=== PATIENT | male | born 1975 | race Caucasian/White ===

== ENCOUNTER → 2020-05-26 | Outpatient (CLI) | payer BC ==
--- NOTE | 2020-05-26 21:01 | CONS ---
CONSULTATION REASON FOR CONSULTATION: Sleep apnea. This is a 45-year-old male patient with classical manifestations of sleep apnea, including loud snoring, witnessed apneas and excessive hypersomnia and sleepiness. The patient goes to bed at 11:00, wakes up at 6:00 in the morning. On weekends he goes to bed at 11 p.m. and wakes up at 8 a.m. in the morning. There was concern for sleep apnea. The patient was referred for a home sleep study by his primary care physician. This was done through an outside system. I was able to obtain a copy of this type 3 home sleep study and this was done through [employer]. The patient was found to have a total of 192 obstructive hypopneas and 56 obstructive apneas, and the resulting apnea- hypopnea index was 35.4, consistent with severe disease. The patient's lowest pulse ox was 78%. The patient was sent over to me for further advice. He is a mouth-breather. His current [place] score is 4. No history of any motor vehicle accidents because of feeling drowsy or sleepy. His weight is up by around 15 pounds over the past 5 years. He does not take any naps during the day. PAST MEDICAL HISTORY: Sleep apnea and hypertension. SURGICAL HISTORY: Pilonidal cyst removal and rhinoplasty. DRUG ALLERGIES: NOT KNOWN. OUTPATIENT MEDICATION: Outpatient medication includes hydrochlorothiazide. SOCIAL HISTORY: Nonsmoker. No use of alcoholism. No history of IV drugs. FAMILY HISTORY: Brother has obstructive sleep apnea. REVIEW OF SYSTEMS: Twelve-point review of systems was done. Positive findings are mentioned above in the history of present illness. PHYSICAL EXAMINATION: BP is 144/84, pulse is 62, respirations 16, temperature 98.1, saturation 98% on room air. Height is 6 feet 0 inches, weight 290, BMI 37.8. Neck size is 20 inches. GENERAL APPEARANCE: Calm, comfortable. HEAD: Atraumatic, normocephalic. NECK: Supple. No JVD. No goiter or neck masses. Mallampati class IV. LUNGS: Clear to auscultation. HEART: Heart sounds are regular rate and rhythm. Normal S1, S2. No S3, S4. No murmurs. ABDOMEN: Soft, nontender. No organomegaly. EXTREMITIES: No edema. No cyanosis or clubbing. IMPRESSION: 1. Severe obstructive sleep apnea with an apnea/hypopnea index of 34. 2. Chronic hypersomnia. 3. Hypertension. PLAN: 1. Proceed with APAP treatment, minimum pressure of 5, maximum pressure of 15. 2. Provide the patient an AirFit F20 full-face mask, medium size. 3. Encourage weight loss. 4. Implement good sleep hygiene measures. 5. See me back in 30 to 90 days here in the sleep center for a compliancy check. MMODL / IJN: [id number] /
== END | disposition home or self-care (01) ==
LOC: SLEEP 15:51
PROVIDERS: ATTEND Internal Medicine Critical Care Medicine
DX: G47.33 Obstructive sleep apnea (adult) (pediatric) (principal); G47.10 Hypersomnia, unspecified; I10 Essential (primary) hypertension
CPT/HCPCS: 99201

== ENCOUNTER → 2020-08-11 | Outpatient (CLI) | payer BC ==
--- NOTE | 2020-08-11 16:54 | SLS ---
SLEEP STUDY Krzysztof is a 45-year-old male patient who has been diagnosed having severe obstructive sleep apnea with an AHI of 35.4. His diagnosis was confirmed by a home sleep study. Based on the symptomatic nature of his sleep apnea, I offered this patient an APAP unit and the patient today is coming in for a compliancy check. Unfortunately, the patient has done poorly. He has failed CPAP treatment. He is unable to maintain CPAP therapy for more than few hours. In fact, he told me that he was unable to generate any form of sleep while on the CPAP. He does have chronic arthritis of his hip, which makes him quite uncomfortable and the patient has some different body positions and he prefers to sleep on his stomach. As such, the CPAP treatment has become a major issue, which prevented him in initiating and maintaining sleep. For that reason, the patient ended up quitting the treatment. Based on the compliance data, the patient had the machine for a total of 68 days and used the machine only for 6 days. He was unable to achieve more than 4 hours of CPAP use per night. He continues to be symptomatic, somnolent and sleepy and he is coming in today for further advice. He is coming in for further advice. He is morbidly obese. He continues to gain weight. Currently his weight is up to 303 pounds which is at least 13 pounds higher compared to his last evaluation back in May. PERTINENT PHYSICAL FINDINGS: BP is 134/85, pulse 66, respirations 16, temperature 98.1, weight is 303, and saturation is 97% on room air. [place] score is at 3. GENERAL APPEARANCE: He is calm, comfortable, morbidly obese. Not in acute distress. HEAD: Atraumatic, normocephalic. NECK: Supple, there is no JVD. No goiter or neck masses, Mallampati class 4. LUNGS: Clear to auscultation. HEART: Heart sounds are regular rate and rhythm, normal S1, S2. No murmurs. ABDOMEN: Soft, nontender, no organomegaly. EXTREMITIES: No edema, no cyanosis or clubbing. NEUROLOGICALLY: He is alert and oriented x3 and there is no focal neurological deficits. PSYCHIATRIC: Negative for anxiety or depression. IMPRESSION: 1. Severe symptomatic ADELINE with an AHI of 34. The patient failed CPAP therapy. 2. Chronic hypersomnia. 3. Obesity with a BMI of 37, interval 13 pound weight gain. 4. Hypertension. PLAN: This patient has failed CPAP therapy for the reasons mentioned above. The machine will be returned back to his DME, [facility]. Will seek alternatives. He is not a candidate for an inspire system. His body mass index is 37and based on the weight criteria, he would mild not be a candidate for the inspire system. He can seek an oral appliance. I am going to refer him to his dentist for an oral appliance treatment which could improve the severity of his sleep apnea, but not fully eliminate it. He was encouraged to lose weight. He was encouraged to sleep on his side with the head of the bed elevated. We can try CPAP therapy in the future if he fails the treatment. For now, the patient is unable to tolerate CPAP and treatment will be discontinued and he will seek an oral appliance. SCOTT / CHESTER: [id number] /
== END | disposition home or self-care (01) ==
LOC: SLEEP 13:23
PROVIDERS: ATTEND Internal Medicine Critical Care Medicine
DX: G47.33 Obstructive sleep apnea (adult) (pediatric) (principal); G47.10 Hypersomnia, unspecified; I10 Essential (primary) hypertension; E66.9 Obesity, unspecified; Z68.37 Body mass index [BMI] 37.0-37.9, adult

== ENCOUNTER → 2022-02-28 | Outpatient (CLI) | payer BC ==
[2022-02-28 16:56] LABS: INR 0.9 (<1.2)
[2022-02-28 16:57] LABS: Prothrombin Time 10.1 sec (9.0-12.0)
[2022-02-28 22:30] LABS: HCT 39.9 % (39.6-50.0); HGB 13.2 g/dL (13.0-17.0); MCHC 33.1 g/dL (32.0-37.0); MCV 84.5 fL (80.0-97.0); Mean Platelet Volume 10.9 fL (9.5-12.2); NRBC Per 100 WBC 0 /100 WBCS (0.0-0.0); Platelet Count 207 X 10*3/uL (140-440); RBC 4.72 X 10*6/uL (4.40-5.60); RDW 12.9 % (11.5-14.5); WBC 7.18 X 10*3/uL (4.50-10.00)
[2022-02-28 22:31] LABS: African American GFR (CKD) 118.2 (60.0-200.0); Albumin 4.7 g/dL (3.8-4.9); Albumin/Globulin Ratio 2.06 (1.60-3.17); Anion Gap 13.5 mmol/L (10.00-18.00); BUN/Creat Ratio 14.45 Ratio (12.00-20.00); Blood Urea Nitrogen 12.8 mg/dL (9.0-27.0); Calcium 9.2 mg/dL (8.7-10.3); Carbon Dioxide 24.2 mmol/L (20.0-27.5); Globulin 2.3 g/dL (1.6-3.3); Potassium 3.5 mmol/L (3.5-5.5); Total Bilirubin 0.2 mg/dL (0.30-1.20)
== END | disposition home or self-care (01) ==
LOC: LABPAT 15:36
PROVIDERS: ATTEND Orthopaedic Surgery
DX: Z01.812 Encounter for preprocedural laboratory examination (principal)
CPT/HCPCS: 80053; 85027; 85610; 85730; 87070; 93005

== ENCOUNTER 2022-03-08 05:36 | Day surgery (SDC) | payer BC ==
[2022-03-07 10:31] VITALS: BMI 36.3
[~2022-03-08 05:36] MED LIST: ACETAMINOPHEN TAB 500 MG TAB PO PRN; GABAPENTIN 300 MG CAP PO PRN; MELOXICAM 7.5 MG TAB PO PRN; TRANEXAMIC ACID IN NACL,ISO-OS 1,000 MG in SALINE 1 100ML.BAG IVPB PRN; ceFAZolin 3 GM in SODIUM CHLORIDE 0.9% 100 ML IVPB PRN
[2022-03-08] MEDS ORDERED: DEXAMETHASONE SOD PHOSPHATE 4 MG/ML 1 ML VIAL IV ONE (05:55)
[2022-03-08] MEDS ORDERED: ONDANSETRON 4 MG/2 ML VIAL IVP ONE (05:55)
[2022-03-08] MEDS ORDERED: LIDOCAINE 1% (10MG/ML) FOR IV START INTRADERMA PRN (05:55)
[2022-03-08] MEDS ORDERED: LACTATED RINGERS 1,000 ML IV SCH (05:55)
[2022-03-08] MEDS ORDERED: MIDAZOLAM 2 MG/2 ML VIAL ONE (07:00)
[2022-03-08] MEDS ORDERED: fentaNYL (PF) 50 MCG/ML 2 ML AMP ONE (07:00)
[2022-03-08] MEDS ORDERED: GLYCOPYRROLATE 0.2 MG/ML 2 ML VIAL ONE (07:00)
[2022-03-08] MEDS ORDERED: ROCURONIUM 10 MG/ML (5 ML VIAL) IV ONE (07:00)
[2022-03-08] MEDS ORDERED: NEOSTIGMINE 1 MG/ML 10 ML VIAL ONE (07:00)
[2022-03-08] MEDS ORDERED: TRANEXAMIC ACID IN NACL,ISO-OS 1,000 MG/100 ML BAG ONE (07:00)
[2022-03-08] MEDS ORDERED: METOCLOPRAMIDE 5 MG/ML 2 ML VIAL IVP PRN (07:00)
[2022-03-08] MEDS ORDERED: HYDROmorphone (PF) 1 MG/ML ONE (07:00)
[2022-03-08] MEDS ORDERED: LIDOCAINE 2% INJ 20 MG/ML (2 ML VIAL) ONE (07:00)
[2022-03-08] MEDS ORDERED: SUCCINYLCHOLINE CHLORIDE VIAL 200 MG/10 ML VIAL IV ONE (07:00)
[2022-03-08] MEDS ORDERED: PROPOFOL 10 MG/ML 20 ML VIAL IV ONE (07:00)
[2022-03-08] MEDS ORDERED: ceFAZolin 1,000 MG in SODIUM CHLORIDE 0.9% 1,000 ML IRRIGATION ONE (07:05)
[2022-03-08] MEDS ORDERED: ROPIVACAINE 5 MG/ML 30 ML VIAL MISCELLANE ONE ×2 (07:32→08:24)
[2022-03-08] MEDS ORDERED: LACTATED RINGERS 1,000 ML IV ONE (08:32)
--- NOTE | 2022-03-08 08:34 | P.OP ---
Date of Procedure: 03/08/22 Preoperative Diagnosis: Severe osteoarthritis right hip Postoperative Diagnosis: Severe osteoarthritis right hip Procedure(s) Performed: Right total hip arthroplasty direct anterior approach Implants: [employer] Polarstem standard size 3 Collar [employer] R3, 3 hole hemispherical acetabular shell, 54 mm [employer] Reflection 6.5 mm cancellus screw, 20 mm 2 [employer] R3, XLPE 20 acetabular liner [employer] Oxinium femoral head 36 m, +0 All components were press-fit. The articulation is Oxinium on polyethylene. Anesthesia: GETA Surgeon: Robb Galaviz Quality Systems Engineer #1: Nikita Vidal Estimated Blood Loss (ml): 350 Pathology: other (Femoral head) Condition: stable Disposition: PACU Indications for Procedure: After failure of conservative treatment we discussed the surgical and nonsurgical treatment options at length. Patient wishes to proceed with a total hip arthroplasty with a direct anterior approach. Complications specific to this procedure were discussed at length, including but not limited to infection, leg length discrepancy, dislocation, nerve injury, and fracture. Covid-19 was also discussed at length with the patient, and they are aware of the current policies and procedures. The patient was given the option of delaying surgery, but they elect to proceed knowing these risks. Patient is aware of all these complications and informed consent was obtained Operative Findings: Operative findings are consistent with severe osteoarthritis the right hip Description of Procedure: Patient was seen and evaluated in the preoperative area and the consent was reviewed. The operative site was marked with a skin marker. The patient was then brought to the operating room and given preoperative antibiotics intrave nously. 1 g of Tranexamic acid was also given intravenously. A general anesthetic was administered by the anesthesia department. The patient was then placed on the [place] table with the bony prominences well-padded. The hip area was then prepped with a ChloraPrep solution and draped in the usual sterile fashion. A universal timeout was then performed, which confirmed the patient's name, surgical site, ALLERGIES, and procedure being performed on the consent. Next the incision site was located at 1 cm distal and 2 cm lateral to the anterior superior iliac spine. The skin and subcutaneous tissues were sharply incised. Incision was carefully dissected down to the fascia overlying the tensor fascia randell muscle. This fascia was then incised in line with the incision. Care was taken to stay laterally in order to avoid injuring the lateral femoral cutaneous nerve. Next, using blunt finger dissection, the tensor fascia randell muscle was dissected off its investing fascia. The muscle was then carefully retracted laterally with a cobra retractor over the lateral neck of the femur. Next, the circumflex vessels were identified and cauterized using the AquaMantis device. The anterior hip capsule was then exposed. The capsule was then opened and an inverted T fashion. Cobra retractors were then placed intracapsularly. The retractors were maintained intracapsular throughout the procedure. The proximal femur was then visualized. Fluoroscopic x-rays were then taken in order to evaluate the preoperative leg lengths. A small amount of traction was placed on the leg. The femoral neck was then osteotomized at the appropriate level above the lesser trochanter. A small wedge of bone was then removed from the remaining femoral head. Next, using a corkscrew the femoral head was removed from the acetabulum. On gross visual inspection, the femoral head had complete loss of articular cartilage and multiple periarticular osteophytes. The femoral head was then measured. Attention was then turned to the acetabulum. The acetabulum was exposed and any remaining labrum was excised. Sequential reaming of the acetabulum was performed using fluoroscopic guidance until there was a good bed of bleeding cancellus bone. When the appropriate size was reached, a trial was then placed. The position and fit of the trial was checked with fluoroscopy. The trial was then removed. Then, using fluoroscopic guidance, the final implant was impacted at 20 of anteversion and 40 of abduction, and fully seated in the acetabulum. 2 screws were then placed in the acetabulum. Again fluoroscopy was used to check position of the screws. Next, the liner was then impacted, with a 20 elevated liner located in the anterior superior quadrant. Component locking was confirmed. Attention was then directed to the femur. With the aid of the [place] table, the femur was externally rotated to approximately 130, extended, and adducted under the opposite leg. A side hook was then placed under the proximal femur, and the side hook elevator was used to elevate the proximal femur while releasing the capsule. Retractors were then placed. A capsular release was performed, as well as a release of the conjoined tendon, which afforded excellent visualization of the proximal femur. Next, a box osteotome was used to lateralize the proximal femur. A seasonal package handler was then used to locate the femoral canal. Sequential broaching was then performed with appropriate size which afforded excellent fixation in the proximal femur. A trial was then placed with appropriate head and neck, and the hip was gently reduced with the aid of the [place] table. Fluoroscopy was then used to check position of the components, as well as to ensure equal leg lengths. The hip was then gently dislocated and the trials were then removed. Final implants were then impacted and the hip was again reduced. Final fluoroscopic x-rays confirmed that the components were in anatomic position, as well as equal leg lengths. The hip was also taken through range of motion, and found to be stable. The hip was then copiously irrigated with antibiotic solution with pulsatile lavage. The hip was then irrigated with Irrisept solution. The soft tissues were then injected with a ropivacaine solution. A second dose of 1 g of Tranexamic acid was also given intravenously. The fascia was then closed with 2-0 strata fix suture. The subcutaneous tissue was closed with 3-0 Vicryl. The subcuticular tissue was closed with 3-0 strata fix suture. The skin was then closed with Exofin skin glue. After the glue and dried, and Optifoam silver impregnated dressing was applied. The patient was then transferred to the recovery room in stable condition. The it assistant BETTY Zavala was required due to the complexity of surgery, and the need for skilled surgical elastic knitter for positioning, draping, exposure, retraction, and closure of the wound.
[2022-03-08 09:11] VITALS: TEMP 96.2
[2022-03-08] MEDS: HYDROmorphone 0.5 MG/0.5 ML SYRINGE IVP PRN ×3 (09:19→09:49)
--- NOTE | 2022-03-08 09:25 | FL ---
Fluoroscopy HISTORY: Anterior hip replacement 29 seconds fluoroscopy time supplied to the referring clinician. 6 intraoperative C-arm images docum ent the procedure. See dictated report from orthopedic surgery.
--- NOTE | 2022-03-08 10:04 | XR ---
Limited right hip HISTORY: Status post right hip arthroplasty 2 views the right hip Patient is status post right hip arthroplasty. There is anatomic alignment, femoral component stop me dially shows a small gap. Lucencies are present within the soft tissues. Degenerative disc changes ar e present in the visualized spine. IMPRESSION: Orthopedic follow-up as described.
[2022-03-08 10:14] VITALS: RESP 20
[2022-03-08] MEDS ORDERED: HYDROcodone/APAP 7.5-325MG 1 EACH TAB ONE (10:38)
[2022-03-08] MEDS ORDERED: HYDROcodone/APAP 7.5-325MG 1 EACH TAB PO ONE (10:40)
[2022-03-08] MEDS ORDERED: ceFAZolin 1,000 MG VIAL IVPB ONE (11:33)
[2022-03-08 12:01] VITALS: BP 123/67; PULSE 67
[2022-03-08] MEDS ORDERED: ceFAZolin 3 GM in SODIUM CHLORIDE 0.9% 100 ML IVPB ONE (13:00)
== END 2022-03-08 12:40 | disposition home health service (06) ==
LOC: OR 05:36
PROVIDERS: ATTEND Orthopaedic Surgery
DX: M16.11 Unilateral primary osteoarthritis, right hip (principal)
CPT/HCPCS: 27130; 97110; 97161; 86900; 86901; 86850; 88300; 73501; C1776; J2250; J0330; J1100; J2710; J0690 ×2; J2405; J3010; J1170 ×2; J2795; J2704; J2001